=== PATIENT | female | born 1995 | race Caucasian/White ===

== ENCOUNTER 2017-11-25 19:47 | Emergency (ER) | payer MEDICAID ==
[~2017-11-25] VITALS: Ht 124.5 cm; Wt 59.0 kg
[~2017-11-25 19:47] MED LIST: IBUPROFEN 600600 M1 PO; NOHOMEMEDICATIONS
[2017-11-25 20:14] LABS: URINE BILIRUBIN NEGATIVE (Negative); URINE BLOOD NEGATIVE (Negative); URINE CLARITY CLEAR; URINE COLOR YELLOW; URINE GLUCOSE-RANDOM NEGATIVE (Negative); URINE KETONES 1+ (Negative); URINE LEUKOCYTES-REFLEX TRACE (Negative); URINE NITRITE-REFLEX NEGATIVE (Negative); URINE PROTEIN TRACE (Negative); URINE UROBILINOGEN 0.2 E.U./dl (0.2-1.0)
[2017-11-25 20:22] LABS: CRYSTALS None Seen /LPF (None Seen); HYALINE CASTS 0-3 Few /LPF (None Seen); MUCUS 4-6 Moderate strn/LPF (None Seen); SQUAMOUS >10 Many /LPF (0-3)
[2017-11-25 20:23] LABS: URINE RBC None Seen /HPF (0-2)
[2017-11-25 20:24] LABS: URINE WBC-REFLEX 0-5 Rare /HPF (0-5)
[2017-11-25 20:32] LABS: ABSOLUTE EOSINOPHILS 0.3 thou/uL (0.0-0.7); ABSOLUTE LYMPHOCYTES 2.1 thou/uL (0.8-5.3); ABSOLUTE MONOCYTES 0.5 thou/uL (0.0-1.2); BASOPHILS 0.2 %; EOSINOPHILS 2.8 %; HEMATOCRIT 37.6 % (37.0-47.0); HEMOGLOBIN 12.3 gm/dL (12.0-15.0); LYMPHOCYTES 21.5 %; MCH 26.4 pg (26.0-34.0); MCHC 32.7 g/dL (28.0-37.0); MCV 80.9 fL (80.0-100.0); MONOCYTES 5.1 %; MPV 9.4 fl. (7.2-11.1); NUCLEATED RBCS 0 /100WBC; PLATELET COUNT* 250 thou/uL (150-400); POLYS 70.4 %; RBC 4.65 mil/uL (4.20-5.00); RDW-CV 15.6 % (10.5-14.5); WBC 9.9 thou/uL (4.0-11.0)
[2017-11-25 20:40] LABS: CALCIUM 9.5 mg/dL (8.5-10.1); POTASSIUM 4.2 mmol/L (3.5-5.1)
[2017-11-25 20:44] LABS: ALBUMIN 4.4 g/dL (3.4-5.0); TOTAL BILIRUBIN 0.4 mg/dL (<0.1-1.0); TOTAL PROTEIN 8.4 g/dL (6.4-8.2)
[2017-11-25] MEDS ORDERED: ZOFRAN4 MG PO (20:54)
[2017-11-25] MEDS ORDERED: CITRATE OF MAG296 M1 PO (21:11)
[2017-11-25 21:19] VITALS: BP 116/71
== END 2017-11-25 21:20 | disposition home or self-care (01) ==
LOC: M.ERS 19:47
PROVIDERS: Nurse Practitioner Family
DX: K59.00 Constipation, unspecified (principal); M79.7 Fibromyalgia